=== PATIENT | female | born 1990 | race Caucasian/White ===

== ENCOUNTER 2022-10-10 16:46 | Observation (INO) | payer MEDICAID, OTHER ==
[2022-10-10] MEDS ORDERED: Sodium Chloride 0.9% 1000 ML 1,000 ML IV STA (17:48)
[2022-10-10] MEDS ORDERED: PROTONIX 40 MG IV IV ONE ×2 (17:48→18:19)
[2022-10-10] MEDS ORDERED: SUBLIMAZE 100 MCG/2 ML IV ONE (17:48)
[2022-10-10] MEDS ORDERED: Zofran 4 MG/2 ML VIAL IV ONE (17:48)
--- NOTE | 2022-10-10 17:52 | ERPHSYRPT ---
- History of Present Illness Historian: patient Exam Limitations: no limitations Patient Subjective Stated Complaint: C/O vomiting for 2 days with fever Triage Nursing Assessment: Patient ambulated back to ER. She is alert and oriented. Knees drawn up in bed. Face is flushed. No active vomiting during assessment. Voice is gruff. Weak, occ, dry cough present. No SOB. Timing/Duration: day(s) (two days) Activities at Onset: none Quality: burning Abdominal Pain Onset Location: epigastric Pain Radiation: no radiation Severity of Pain-Max: mild Severity of Pain-Current: mild Associated Symptoms: fever/chills, nausea, vomiting, No shortness of breath Previous symptoms: no prior history Body Map: 1 - pain Hx Tetanus, Diphtheria Vaccination/Date Given: Yes Hx Influenza Vaccination/Date Given: No Hx Pneumococcal Vaccination/Date Given: No Immunizations Up to Date: Yes <JODY,JACOB - Last Filed: 10/10/22 19:07> <ANTONIO SHORE - Last Filed: 10/10/22 20:42> - History of Present Illness Time Seen by Provider: 10/10/22 17:49 Physician History: C/O vomiting for 2 days with fever (JODY,JACOB) Allergies/Adverse Reactions: benzonatate [From Tessalon Perles] Allergy (Verified 10/10/22 17:30) cephalexin [From Keflex] Allergy (Verified 10/10/22 17:30) Home Medications: No Reportable Medications [No Reported Medications] 10/10/22 [History] Travel Risk - International Travel Have you traveled outside of the country in past 3 weeks: No - Coronavirus Screening Are you exhibiting any of the following symptoms?: No Symptoms: Fever, Vomiting/Diarrhea Close contact with a COVID-19 positive Pt in past 14-21 Days: No - Vaccine Status Have you recieved a Covid-19 vaccination: No <JODY,JACOB - Last Filed: 10/10/22 19:07> - Review of Systems Constitutional: Fever, Chills Eyes: No Symptoms Ears, Nose, & Throat: No Symptoms Respiratory: No Cough, No Dyspnea Cardiac: No Chest Pain, No Edema, No Syncope Abdominal/Gastrointestinal: Abdominal Pain (epigastric area), Nausea, Vomiting, No Diarrhea Genitourinary Symptoms: No Dysuria Musculoskeletal: No Back Pain, No Neck Pain Skin: No Rash Neurological: No Dizziness, No Focal Weakness, No Sensory Changes Psychological: No Symptoms Endocrine: No Symptoms All Other Systems: Reviewed and Negative <JODY,JACOB - Last Filed: 10/10/22 19:07> - Past Medical History Pertinent Past Medical History: Yes Respiratory History: Asthma Musculoskeletal History: Fractures Psycho-Social History: Anxiety, Depression - Past Surgical History Past Surgical History: Yes Female Surgical History: Section - Social History Smoking Status: Current every day smoker How long have you smoked: long time Exposure to second hand smoke: No Drug Use: none Patient Lives Alone: No - Female History Hx Last Menstrual Period: NOW Hx Now: No <JODY,JACOB - Last Filed: 10/10/22 19:07> - Physical Exam General Appearance: no apparent distress, alert Eye Exam: PERRL/EOMI, eyes nml inspection Ears, Nose, Throat Exam: normal ENT inspection, pharynx normal, moist mucous membranes Neck Exam: normal inspection, non-tender, supple, full range of motion Respiratory Exam: normal breath sounds, lungs clear, No respiratory distress Cardiovascular Exam: regular rate/rhythm, normal heart sounds Gastrointestinal/Abdomen Exam: soft, tenderness (epigastric), No mass Back Exam: normal inspection, normal range of motion, No CVA tenderness, No vertebral tenderness Extremity Exam: normal inspection, normal range of motion, pelvis stable Neurologic Exam: alert, oriented x 3, cooperative, normal mood/affect, nml cerebellar function, sensation nml, No motor deficits Skin Exam: normal color, warm, dry SpO2: 100 <JODY, - Last Filed: 10/10/22 19:07> - Nursing Vital Signs Nursing Vital Signs: Initial Vital Signs Temperature 99.2 F 10/10/22 17:31 Pulse Rate 64 10/10/22 17:31 Respiratory Rate 18 10/10/22 17:31 Blood Pressure 122/76 10/10/22 17:31 O2 Sat by Pulse Oximetry 100 10/10/22 17:31 Pain Scale Pain Intensity 9 - Course Nursing assessment & vital signs reviewed: Yes - CT Exams Abdomen/Pelvis CT Interpretation: Tele-radiologist Report <JODY,JACOB - Last Filed: 10/10/22 19:07> Ordered Tests: Active Orders 24 hr Category Date Time Status ABDOMEN AND PELVIS W/0 CONTRAS [CT] Stat Exams 10/10/22 17:52 Completed GALLBLADDER [US] Stat Exams 10/10/22 20:31 Ordered AMYLASE Stat Lab 10/10/22 18:09 Completed CBC W DIFF Stat Lab 10/10/22 18:09 Completed CMP Stat Lab 10/10/22 18:09 Completed LIPASE Stat Lab 10/10/22 18:09 Completed UA W/RFX UR CULTURE Stat Lab 10/10/22 20:08 Completed Medication Summary Discontinued Medications Generic Name Dose Route Start Last Admin Trade Name Freq PRN Reason Stop Dose Admin Fentanyl Citrate 50 mcg 10/10/22 17:48 10/10/22 18:27 Fentanyl Citrate 100 Mcg/2 Ml* Vial IV 10/10/22 17:49 50 mcg STAT ONE Administration Fentanyl Citrate Confirm 10/10/22 18:20 Fentanyl Citrate 100 Mcg/2 Ml* Vial Administered 10/10/22 18:21 Dose 100 mcg .ROUTE .STK-MED ONE Sodium Chloride 1,000 mls @ 999 mls/hr 10/10/22 17:48 10/10/22 20:14 Sodium Chloride 0.9% 1000 Ml IV 10/10/22 18:48 Infused .Q1H1M STA Infusion Sodium Chloride Confirm 10/10/22 18:20 Sodium Chloride 0.9% 1000 Ml Administered 10/10/22 18:21 Dose 1,000 mls @ ud .ROUTE .STK-MED ONE Levofloxacin/Dextrose 500 mg in 100 mls @ 100 mls/hr 10/10/22 18:40 10/10/22 19:54 Levofloxacin 500mg/100ml D5w IV 10/10/22 19:39 100 mls/hr STAT STA 100 mls/hr Administration Levofloxacin/Dextrose Confirm 10/10/22 19:53 Levofloxacin 500mg/100ml D5w Administered 10/10/22 19:54 Dose 500 mg in 100 mls @ ud IV .STK-MED ONE Ondansetron HCl 4 mg 10/10/22 17:48 10/10/22 18:24 Ondansetron Hcl 4 Mg/2 Ml Vial IV 10/10/22 17:49 4 mg STAT ONE Administration Ondansetron HCl Confirm 10/10/22 18:19 Ondansetron Hcl 4 Mg/2 Ml Vial Administered 10/10/22 18:20 Dose 4 mg .ROUTE .STK-MED ONE Pantoprazole Sodium 40 mg 10/10/22 17:48 10/10/22 18:28 Pantoprazole 40 Mg Vial IV 10/10/22 17:49 40 mg STAT ONE Administration Pantoprazole Sodium Confirm 10/10/22 18:19 Pantoprazole 40 Mg Vial Administered 10/10/22 18:20 Dose 40 mg IV .STK-MED ONE Lab/Rad Data: Laboratory Result Diagrams 10/10/22 18:09 10/10/22 18:09 Laboratory Results 10/10/22 10/10/22 10/10/22 Range/Units 20:08 18:09 18:09 WBC 15.5 H (4.0-10.5) x10^3/uL RBC 4.85 (4.1-5.4) x10^6/uL Hgb 15.5 (12.0-16.0) g/dL Hct 46.4 (35-47) % MCV 95.7 (78-100) fL MCH 32.0 (26-32) pg MCHC 33.4 (32-36) g/dL RDW 12.4 (11.5-14.0) % Plt Count 258 (150-450) x10^3/uL MPV 11.3 H (7.5-11.0) fL Gran % 79.3 H (36.0-66.0) % Immature Gran % (Auto) 0.4 (0.00-0.4) % Nucleat RBC Rel Count 0.0 (0.00-0.1) % Eos # (Auto) 0.01 (0-0.5) x10^3/uL Immature Gran # (Auto) 0.06 H (0.00-0.03) x10^3u/L Absolute Lymphs (auto) 2.01 (1.0-4.6) x10^3/uL Absolute Monos (auto) 1.12 (0.0-1.3) x10^3/uL Absolute Nucleated RBC 0.00 (0.00-0.01) x10^3u/L Lymphocytes % 12.9 L (24.0-44.0) % Monocytes % 7.2 (0.0-12.0) % Eosinophils % 0.1 (0.00-5.0) % Basophils % 0.1 (0.0-0.4) % Absolute Granulocytes 12.32 H (1.4-6.9) x10^3/uL Basophils # 0.02 (0-0.4) x10^3/uL Sodium 141 (137-145) mmol/L Potassium 4.1 (3.5-5.1) mmol/L Chloride 103 (98-107) mmol/L Carbon Dioxide 27 (22-30) mmol/L Anion Gap 15.3 H (5-15) MEQ/L BUN 19 H (7-17) mg/dL Creatinine 0.66 (0.52-1.04) mg/dL Estimated GFR > 60.0 ML/MIN Glucose 127 H (74-106) mg/dL Calcium 9.4 (8.4-10.2) mg/dL Total Bilirubin 0.60 (0.2-1.3) mg/dL AST 24 (14-36) U/L ALT 30 (0-35) U/L Alkaline Phosphatase 67 (38-126) U/L Serum Total Protein 8.5 H (6.3-8.2) g/dL Albumin 4.5 (3.5-5.0) g/dL Amylase 75 (30-110) U/L Lipase 65 (23-300) U/L Urine Color Yellow (Yellow) Urine Appearance Clear (Clear) Urine pH 6.0 (4.6-8.0) Ur Specific [place] >=1.030 A (1.005-1.030) Urine Protein Trace A (Negative) Urine Glucose (UA) Negative (Negative) mg/dL Urine Ketones Negative (Negative) Urine Blood NHT (Negative) Urine Nitrite Negative (Negative) Urine Bilirubin Negative (Negative) Urine Urobilinogen 0.2 (0.2) mg/dL Ur Leukocyte Esterase Negative (Negative) U Hyaline Cast (Auto) 3-5 A (0-2) /LPF Urine Microscopic RBC 0-2 (0-5) /HPF Urine Microscopic WBC 3-5 (0-5) /HPF Ur Epithelial Cells Rare (None Seen) /HPF Urine Bacteria None Seen (None Seen) /HPF Urine Culture Reflexed NO (NO) - Progress Progress: improved, pain not gone completely, re-examined Discussed with Dr.: Joe, Other (Dr. Beasley at 2024) Will see patient in: hospital (observation) Counseled pt/family regarding: lab results, diagnosis, need for follow-up, rad results <ANTONIO SHORE - Last Filed: 10/10/22 20:42> - Progress Progress Note: 10/10/22 20:36 32 years old female is checked out to me at shift change from with pending CT abdomen pelvis. She presented with upper abdominal pain/vomiting/fever chills for the last couple of days. She is given symptomatic treatment, during my evaluation she is feeling better but still have tenderness to epigastric and right upper quadrant with positive Palacios sign. She has a white count of 15. She already received a dose of Levaquin by . Liver enzymes are normal. No UTI. CT abdomen pelvis did show distended gallbladder with 2.2 cm stone without pericholecystic fluid or signs of inflammation suggesting acute cholecystitis. Clinically patient seems to be having acute cholecystitis. I have discussed with Dr. Merida general surgeon on- call, reviewed history, work-up and agreed with observation in the hospital. I have discussed with Dr. Dobbs hospitalist and patient is being admitted. We will obtain ultrasound right upper quadrant as well. I have discussed the results of work-up, discussion with general surgeon and hospitalist with patient and recommended admission and she agrees with it. We will keep her n.p.o. (ANTONIO SHORE) Medical Desision Making - Discussion of managment Care discussed with:: specialist (Dr. Dobbs at [address]ida general surgeon) Reviewed:: Test results, Need for additional workup Agreed on:: Treatment plan, place in obs Will see patient: in hospital - Diagnostic Testing Diagnostic test were ordered, analyzed, and reviewed by me: Yes Radiological Interpretation: Reviewed by me - Risk of complications The pt has a high risk of morbidity or mortality based on: Decision regarding hospitilization or escalation of hosp level of care <ANTONIO SHORE - Last Filed: 10/10/22 20:42> <JACOB VERA - Last Filed: 10/10/22 19:07> - Departure Departure Disposition: Observation Critical Care Time: No <ANTONIO SHORE - Last Filed: 10/10/22 20:42> - Departure Clinical Impression: Upper abdominal pain Condition: Stable
[2022-10-10 18:12] LABS: Absolute Neutrophil Ct (ANC) 12.32 x10^3/uL (1.4-6.9); BASOPHIL % 0.1 % (0.0-0.4); Basophil (Absolute #) 0.02 x10^3/uL (0-0.4); Eosinophil % 0.1 % (0.00-5.0); Eosinophil (Absolute #) 0.01 x10^3/uL (0-0.5); Hematocrit 46.4 % (35-47); Hemoglobin 15.5 g/dL (12.0-16.0); IMMATURE GRAN # 0.06 x10^3u/L (0.00-0.03); IMMATURE GRAN % 0.4 % (0.00-0.4); Lymphocyte (Absolute #) 2.01 x10^3/uL (1.0-4.6); Lymphocytes % 12.9 % (24.0-44.0); Mean Cell Volume 95.7 fL (78-100); Mean Corpuscular Hgb Concent. 33.4 g/dL (32-36); Mean Platelet Volume 11.3 fL (7.5-11.0); Monocyte (Absolute #) 1.12 x10^3/uL (0.0-1.3); Monocytes % 7.2 % (0.0-12.0); Neutrophil % 79.3 % (36.0-66.0); Platelet Count 258 x10^3/uL (150-450); Red Blood Count 4.85 x10^6/uL (4.1-5.4); Red Cell Distribution Width 12.4 % (11.5-14.0); White Blood Count 15.5 x10^3/uL (4.0-10.5)
[2022-10-10] MEDS ORDERED: Zofran 4 MG/2 ML VIAL ONE (18:19)
[2022-10-10] MEDS ORDERED: SUBLIMAZE 100 MCG/2 ML ONE (18:20)
[2022-10-10] MEDS ORDERED: Sodium Chloride 0.9% 1000 ML 1,000 ML ONE (18:20)
[2022-10-10 18:21] LABS: ALBUMIN 4.5 g/dL (3.5-5.0); ALKALINE PHOSPHATASE 67 U/L (38-126); AMYLASE 75 U/L (30-110); ANION GAP 15.3 MEQ/L (5-15); BLOOD UREA NITROGEN 19 mg/dL (7-17); CHLORIDE 103 mmol/L (98-107); Calcium 9.4 mg/dL (8.4-10.2); Carbon Dioxide 27 mmol/L (22-30); Creatinine 1 0.66 mg/dL (0.52-1.04); EST GLOMERULAR FILTRATION RATE > 60.0 ML/MIN; Glucose 127 mg/dL (74-106); LIPASE 65 U/L (23-300); Potassium 4.1 mmol/L (3.5-5.1); SGOT/AST 24 U/L (14-36); SGPT/ALT 30 U/L (0-35); SODIUM 141 mmol/L (137-145); Total Protein 8.5 g/dL (6.3-8.2)
[2022-10-10] MEDS ORDERED: Levofloxacin 500MG/100ML D5W 500 MG/100 ML BAG IV STA (18:40)
--- NOTE | 2022-10-10 19:32 | XRAY ---
CLINICAL HISTORY:epigastric abdominal pain COMPARISON:None. TECHNIQUE:CT scan of the abdomen and pelvis was performed without contrast. Coronal and sagittal reconstructive images were also obtained. FINDINGS: Abdomen: The liver is normal measuring 17.0 cm craniocaudally. No diffuse or focal parenchymal abnormality. The portal vein, intrahepatic biliary radicals and the bile ducts are normal. The spleen, pancreas, adrenal glands are unremarkable. The kidneys are normal in size and shape. A tiny calculus is seen in the middle calyx of the left kidney measuring 3.0 mm (too small to characterize HU density). No hydronephrosis. The gallbladder is distended with an intraluminal stone measuring 2.2 cm. There is no evidence of wall thickening/ pericholecystic collection. The ascending colon, the transverse colon, the descending colon, visualized small bowel loops are unremarkable. There is no evidence of significant enlargement of the mesenteric or retroperitoneal lymph nodes. Atherosclerotic aorta and some of its branches. Pelvis: The urinary bladder is unremarkable. The rectosigmoid colon is unremarkable. The uterus is unremarkable. The cervix is dilated and air-filled. The pelvic vasculature is unremarkable. No evidence of pelvic lymphadenopathy. The osseous structures in the pelvis, lower rib cage and lumbar spine show no abnormality. IMPRESSION: 1. Sizable gallbladder stone with no signs of cholecystitis. 2. Tiny non-obstructing left renal calculus. 3. Dilated and air-filled cervix. Clinical correlation suggested. Electronically Signed by: Gonzalez Catherine MD. (10/10/2022 18:32:05 [employer])
[2022-10-10] MEDS ORDERED: Levofloxacin 500MG/100ML D5W 500 MG/100 ML BAG IV ONE (19:53)
[2022-10-10 20:19] LABS: Appearance Clear (Clear); Bacteria None Seen /HPF (None Seen); Bilirubin Negative (Negative); Blood NHT (Negative); Epithelial Cells Rare /HPF (None Seen); Glucose, Urine Negative (Negative); Ketones Negative (Negative); Leukocyte Esterase Negative (Negative); Nitrite Negative (Negative); Protein,Urine Dip Trace (Negative); RBC 0-2 /HPF (0-5); Specific Gravity >=1.030 (1.005-1.030); Urobilinogen 0.2 mg/dL (0.2)
[2022-10-10 20:23] LABS: ADD URINE CULTURE? NO (NO)
[2022-10-10] MEDS ORDERED: Sodium Chloride 0.9% W/ 20 mEq KCl/LITER 1,000 ML IV SCH (23:08)
[2022-10-10] MEDS ORDERED: DUONEB 0.5-3 MG/3 ml Neb IH PRN (23:08)
[2022-10-10] MEDS ORDERED: TYLENOL 325 MG PO PRN (23:08)
[2022-10-10] MEDS: Sodium Chloride 0.9% 1000 ML 1,000 ML IV SCH (23:24)
[2022-10-10] MEDS: MORPHINE SULFATE 4 MG INJ IV PRN (23:25)
[2022-10-10] MEDS: Zofran 4 MG/2 ML VIAL IV PRN (23:35)
[2022-10-11] MEDS ORDERED: Reglan 10 MG/2 ML IV PRN (00:42)
--- NOTE | 2022-10-11 00:57 | PCM.HP ---
History of Present Illness - Chief Complaint Chief Complaint: Upper abdominal pain Date: 10/11/22 History of Present Illness: This is a 32-year-old female admitted for acute cholecystitis. She has no past medical history. She presented to the ED this evening for evaluation of fever, vomiting, RUQ pain for 2 days. On arrival temp was 99.2, heart rate 64, blood pressure 122/76, sat 100% on room air. Labs significant for WBC 15, AST 24, ALT 30, alk phos 67, lipase 65 UA positive for protein and hyaline casts. CT abdomen pelvis is obtained that showed the gallbladder was distended with an intraluminal stone measuring 2.2 cm with no wall thickening or pericholecystic fluid. In the ED she received fentanyl, 1 L crystalloid, Levaquin, Zofran, Protonix. General surgeon was consulted by ED with plans to keep her n.p.o. - Review of Systems Constitutional: Fever Eyes: No Symptoms Ears, Nose, & Throat: No Symptoms Respiratory: No Symptoms Cardiac: No Symptoms Abdominal/Gastrointestinal: Abdominal Pain, Nausea, Vomiting Genitourinary Symptoms: No Symptoms Musculoskeletal: No Symptoms Skin: No Symptoms Neurological: No Symptoms Psychological: No Symptoms Endocrine: No Symptoms Hematologic/Lymphatic: No Symptoms Immunological/Allergic: No Symptoms Medications & Allergies Home Medications: Home Medication List No Reportable Medications [No Reported Medications] 10/10/22 [History Confirmed 10/10/22] Allergies/Adverse Reactions: Allergies Allergy/AdvReac Type Severity Reaction Status Date / Time benzonatate Allergy Verified 10/10/22 17:30 [From Tessalon Perles] cephalexin [From Keflex] Allergy Verified 10/10/22 17:30 - Past Medical History Past Medical History: Yes Neurological History: No Pertinent History ENT History: No Pertinent History Cardiac History: No Pertinent History Respiratory History: Asthma Endocrine Medical History: No Pertinent History Musculoskelatal History: Fractures GI Medical History: No Pertinent History History: No Pertinent History Pyscho-Social History: Anxiety, Depression Reproductive Disorders: No Pertinent History - Female History Hx Last Menstrual Period: NOW Are you now?: No - Past Surgical History Past Surgical History: Yes Neuro Surgical History: No Pertinent History Cardiac History: No Pertinent History Respiratory Surgery: No Pertinent History GI Surgical History: No Pertinent History Genitourinary Surgical Hx: No Pertinent History Musculskeletal Surgical Hx: No Pertinent History Female Surgical History: Section - Social History Smoking Status: Current every day smoker How long have you smoked: long time Exposure to second hand smoke: No Alcohol: None Drug Use: none - Physical Exam Vital Signs: Vital Signs - 24 hr Temp Pulse Resp BP BP Pulse Ox 10/11/22 00:05 57 L 16 97 10/10/22 23:40 98.7 F 81 16 140/60 98 10/10/22 21:00 136/82 99 10/10/22 20:30 55 L 151/85 100 10/10/22 20:01 60 171/85 100 10/10/22 19:31 64 134/86 99 10/10/22 19:07 100 10/10/22 19:01 68 149/79 95 10/10/22 18:53 60 124/77 96 10/10/22 18:01 57 L 158/86 98 10/10/22 17:31 99.2 F 64 18 122/76 122/76 100 General Appearance: no apparent distress Neurologic Exam: alert, oriented x 3 Eye Exam: PERRL/EOMI Ears, Nose, Throat Exam: normal ENT inspection Neck Exam: normal inspection Respiratory Exam: normal breath sounds Cardiovascular Exam: regular rate/rhythm Gastrointestinal/Abdomen Exam: tenderness (RUQ) Extremity Exam: normal inspection Skin Exam: normal color Results - Labs Lab/Micro Results: Lab Results-Last 24 Hours 10/10/22 10/10/22 10/10/22 Range/Units 18:09 18:09 20:08 WBC 15.5 H (4.0-10.5) x10^3/uL RBC 4.85 (4.1-5.4) x10^6/uL Hgb 15.5 (12.0-16.0) g/dL Hct 46.4 (35-47) % MCV 95.7 (78-100) fL MCH 32.0 (26-32) pg MCHC 33.4 (32-36) g/dL RDW 12.4 (11.5-14.0) % Plt Count 258 (150-450) x10^3/uL MPV 11.3 H (7.5-11.0) fL Gran % 79.3 H (36.0-66.0) % Immature Gran % (Auto) 0.4 (0.00-0.4) % Nucleat RBC Rel Count 0.0 (0.00-0.1) % Eos # (Auto) 0.01 (0-0.5) x10^3/uL Immature Gran # (Auto) 0.06 H (0.00-0.03) x10^3u/L Absolute Lymphs (auto) 2.01 (1.0-4.6) x10^3/uL Absolute Monos (auto) 1.12 (0.0-1.3) x10^3/uL Absolute Nucleated RBC 0.00 (0.00-0.01) x10^3u/L Lymphocytes % 12.9 L (24.0-44.0) % Monocytes % 7.2 (0.0-12.0) % Eosinophils % 0.1 (0.00-5.0) % Basophils % 0.1 (0.0-0.4) % Absolute Granulocytes 12.32 H (1.4-6.9) x10^3/uL Basophils # 0.02 (0-0.4) x10^3/uL Sodium 141 (137-145) mmol/L Potassium 4.1 (3.5-5.1) mmol/L Chloride 103 (98-107) mmol/L Carbon Dioxide 27 (22-30) mmol/L Anion Gap 15.3 H (5-15) MEQ/L BUN 19 H (7-17) mg/dL Creatinine 0.66 (0.52-1.04) mg/dL Estimated GFR > 60.0 ML/MIN Glucose 127 H (74-106) mg/dL Calcium 9.4 (8.4-10.2) mg/dL Total Bilirubin 0.60 (0.2-1.3) mg/dL AST 24 (14-36) U/L ALT 30 (0-35) U/L Alkaline Phosphatase 67 (38-126) U/L Serum Total Protein 8.5 H (6.3-8.2) g/dL Albumin 4.5 (3.5-5.0) g/dL Amylase 75 (30-110) U/L Lipase 65 (23-300) U/L Urine Color Yellow (Yellow) Urine Appearance Clear (Clear) Urine pH 6.0 (4.6-8.0) Ur Specific [place] >=1.030 A (1.005-1.030) Urine Protein Trace A (Negative) Urine Glucose (UA) Negative (Negative) mg/dL Urine Ketones Negative (Negative) Urine Blood NHT (Negative) Urine Nitrite Negative (Negative) Urine Bilirubin Negative (Negative) Urine Urobilinogen 0.2 (0.2) mg/dL Ur Leukocyte Esterase Negative (Negative) U Hyaline Cast (Auto) 3-5 A (0-2) /LPF Urine Microscopic RBC 0-2 (0-5) /HPF Urine Microscopic WBC 3-5 (0-5) /HPF Ur Epithelial Cells Rare (None Seen) /HPF Urine Bacteria None Seen (None Seen) /HPF Urine Culture Reflexed NO (NO) - Radiology Impressions Radiology Exams & Impressions: Radiology Procedures Category Date Time Status ABDOMEN AND PELVIS W/0 CONTRAS [CT] Stat Exams 10/10/22 17:52 Completed GALLBLADDER [US] Stat Exams 10/10/22 23:08 Ordered Assessment/Plan (1) Upper abdominal pain Current Visit: Yes Status: Acute Assessment & Plan: ASSESSMENT #Acute Cholecystitis #Nausea/Vomiting PLAN -Follow abdominal exam -Keep n.p.o. -Antibiotic coverage ->Levaquin -IV fluids -Pain and nausea control -Follow LFTs Diet: N.p.o. Prophylaxis: Lovenox, Protonix Entire encounter performed via telemedicine Telemedicine Encounter - Telemedicine Encounter Telemedicine Encounter: The entirety of this encounter was performed via Telemedicine"
[2022-10-11 05:15] LABS: Absolute Neutrophil Ct (ANC) 9.23 x10^3/uL (1.4-6.9); BASOPHIL % 0.2 % (0.0-0.4); Basophil (Absolute #) 0.03 x10^3/uL (0-0.4); Eosinophil % 0.6 % (0.00-5.0); Eosinophil (Absolute #) 0.09 x10^3/uL (0-0.5); Hematocrit 45.6 % (35-47); Hemoglobin 14.9 g/dL (12.0-16.0); IMMATURE GRAN # 0.06 x10^3u/L (0.00-0.03); IMMATURE GRAN % 0.4 % (0.00-0.4); Lymphocyte (Absolute #) 3.78 x10^3/uL (1.0-4.6); Lymphocytes % 26.6 % (24.0-44.0); Mean Cell Volume 97.4 fL (78-100); Mean Corpuscular Hemoglobin 31.8 pg (26-32); Mean Corpuscular Hgb Concent. 32.7 g/dL (32-36); Mean Platelet Volume 11.5 fL (7.5-11.0); Neutrophil % 65.2 % (36.0-66.0); Platelet Count 224 x10^3/uL (150-450); Red Blood Count 4.68 x10^6/uL (4.1-5.4); Red Cell Distribution Width 12.4 % (11.5-14.0); White Blood Count 14.2 x10^3/uL (4.0-10.5)
[2022-10-11 05:36] LABS: ALKALINE PHOSPHATASE 60 U/L (38-126); ANION GAP 12.4 MEQ/L (5-15); BLOOD UREA NITROGEN 16 mg/dL (7-17); CHLORIDE 104 mmol/L (98-107); Calcium 8.8 mg/dL (8.4-10.2); Carbon Dioxide 26 mmol/L (22-30); Creatinine 1 0.77 mg/dL (0.52-1.04); EST GLOMERULAR FILTRATION RATE > 60.0 ML/MIN; Glucose 135 mg/dL (74-106); MAGNESIUM 2.4 mg/dL (1.6-2.3); Potassium 4.4 mmol/L (3.5-5.1); SGOT/AST 22 U/L (14-36); SGPT/ALT 26 U/L (0-35); SODIUM 139 mmol/L (137-145); Total Protein 7.5 g/dL (6.3-8.2)
[2022-10-11] MEDS: MORPHINE SULFATE 4 MG INJ IV PRN ×4 (05:36→19:58)
[2022-10-11] MEDS: Zofran 4 MG/2 ML VIAL IV PRN ×3 (05:37→18:33)
[2022-10-11] MEDS: PROTONIX 40 MG IV IV SCH (09:07)
[2022-10-11] MEDS: Sodium Chloride 0.9% 1000 ML 1,000 ML IV SCH (09:09)
[2022-10-11] MEDS ORDERED: Sensorcaine 0.25% 10 ML ONE (10:11)
[2022-10-11] MEDS ORDERED: Lactated Ringers 1,000 ML IV ONE (10:12)
--- NOTE | 2022-10-11 11:02 | XRAY ---
Indication: Pain. Nausea and vomiting. Two-dimensional gallbladder sonogram performed. Comparison: None Gallbladder partially contracted with borderline wall thickening up to 2.7 mm. Tiny pericholecystic fluid but no gallstones or abnormal biliary distention. Common bile duct measures 4.9 mm. Remaining visualized pancreas and right kidney are sonographically unremarkable. Impression: Pericholecystic fluid without gallstones. Rule out acalculous cholecystitis. Comment: Study was reviewed with Dr. Faustin.
[2022-10-11] MEDS ORDERED: Xylocaine-Mpf 2% 5 Ml Vial ONE (13:14)
[2022-10-11] MEDS ORDERED: DIPRIVAN 200 MG/20 ML IV ONE (13:14)
[2022-10-11] MEDS ORDERED: Versed 2 MG/2 ML Injection ONE (13:14)
--- NOTE | 2022-10-11 14:01 | CONS ---
CONSULT DATE: 10/11/2022 This patient was seen for Dr. Matt Merida who apparently was called over the weekend while he was software applications specialist. I do not see a note that he had seen the patient. HISTORY: The patient had some thickening of the gallbladder wall on CT scan and ultrasound. She had some epigastric pain for two or three days. She does have history of fever but again she did not have a distended gallbladder. She had a contracted gallbladder. Ultrasound today did not show any evidence of gallstone. She said she is actually feeling a little bit better. Liver function tests were unremarkable. Her white count was 14, hemoglobin 14.9. Lipase 65. She said her pain is in epigastrium and not the right upper quadrant. She said it is better. PAST MEDICAL HISTORY: She denies any chronic illnesses. She has a little bit of asthma, anxiety, depression and no other chronic illnesses. She denies Crohn's disease, heart disease or diabetes. PAST SURGICAL HISTORY: section. HOME MEDICATIONS: None. ALLERGIES: BENZONATATE. CEPHALEXIN. FAMILY HISTORY: Negative in regards to this specific problem. SOCIAL HISTORY: She is a smoker. No alcohol abuse. REVIEW OF SYSTEMS: Fourteen systems reviewed. Negative or noncontributory as above and per preadmission questionnaire. PHYSICAL EXAMINATION: GENERAL: No acute distress. She is NPO. HEENT: Sclera nonicteric. EOMI. Oral mucous membranes moist. NECK: No JVD. CHEST: Equal excursion, nonlabored breathing. CVS: Regular rhythm and pulse. ABDOMEN: Soft. Generalized epigastric pain. EXTREMITIES: She was ambulating in the halls going out for a smoke break. NEURO: Alert, moving extremities grossly symmetrically. PSYCH: Appropriate mood and affect. SKIN: Dry. IMPRESSION: Epigastric pain she said is improved. I reviewed her ultrasound with Dr. Reji Donald, Radiologist. She does not have any gallstones on ultrasound. She has a little bit of wall thickening, whether there is any cholecystic fluid of small amount. Again, this is not a contracted gallbladder, nondistended at this point. Options were discussed with the patient whether she has acute on chronic cholecystitis or whether she has gastritis, peptic ulcer disease or other etiology. Options considered were cholecystectomy, EGD to rule out ulcer disease or gastritis. I ordered a HIDA scan. She prefers to avoid any open surgical procedures if at all possible at this time. She is not wanting to undergo cholecystectomy at this juncture. She is agreeable with doing an upper scope. If that does not show much, can order HIDA scan. Again, I am seeing this patient with Dr. Merida. If upper endoscopy does not show much then schedule for HIDA, She does understand there is a minimal chance that she has a chronic inflammation of her gallbladder and would benefit from removal. However at this time she is not wanting to do this at this point. If no gallstones she could go ahead and plan an EGD first and if negative order HIDA scan. The patient was seen for Dr. Matt Merida who was software applications specialist for our group when she came in.
--- NOTE | 2022-10-11 14:20 | OP ---
SURGERY DATE/TIME: 10/11/2022 1318 PREOPERATIVE DIAGNOSES: 1) Epigastric pain. 2) History of gallbladder ultrasound with slight wall thickening but nondistended and no gallstones. POSTOPERATIVE DIAGNOSES: 1) Mild erosive gastritis. 2) Very short segment distal esophagitis. 3) ASA Class II. PROCEDURES: 1) EGD with cold biopsy of small bowel to evaluate for celiac sprue. 2) Cold biopsy of the antrum to evaluate for Helicobacter pylori. 3) Cold biopsy distal esophagus. SURGEON: Dr. Gamaleil Faustin. ANESTHESIA: MAC. ESTIMATED BLOOD LOSS: Minimal. INDICATIONS: As noted above. Risks and benefits explained in detail and not limited to and consent obtained. DESCRIPTION OF PROCEDURE AND FINDINGS: The patient is taken to the endoscopy room. MAC anesthesia introduced. After official time out and no disagreement with planned procedure, bite block positioned. Video gastroscope passed down the esophagus through the patent pylorus to the junction of the second and third portion of the duodenum. There were no signs of any ulcer. Given her symptom complaints, cold biopsy is taken to evaluate for celiac sprue to rule out other cause of her symptoms. Scope pulled back into the stomach. She did have some erythema, congestion, superficial erosions, some mild erosive gastritis. There were no signs of any ulcers. On retroflex there were no signs of any large hiatal hernia. Cold biopsy had been taken in the small bowel. Cold biopsy had been taken in the antrum for Helicobacter pylori. The scope pulled back to the gastroesophageal junction about 39 cm. There was a very short segment of linear erosion about 2 to 3 mm extension consistent with a short segment distal esophagitis, mild distal esophagitis. No signs of any masses. No signs of any other obvious mucosal abnormalities on withdrawal of the scope. The scope is withdrawn. The patient tolerated the procedure well. There is no family here to discuss the findings with. There were no immediate complications.
[2022-10-11] MEDS ORDERED: NICODERM CQ 14 MG TOP SCH (21:00)
--- NOTE | 2022-10-11 21:17 | TM.IN ---
Tele-Medicine Incident Note - Incident Note Tel-Medicine Incident Note: Note, patient seen earlier this morning by overnight physician. This morning, was ambulating, but still having some abdominal pain and nausea. Seen by Dr. Faustin this morning, and right upper quadrant ultrasound did not show the stone that was reported on the CT scan. As well, it showed only minimal gallbladder wall thickening, and no distention. Upon further description to Dr. Faustin, pain appear to be more midepigastric. Patient underwent upper endoscopy, that showed mild gastritis and erosive esophagitis, but no ulcers. Biopsies were taken for H. pylori and celiac sprue. Afterwards, patient was somewhat sedated, but later in the day was able to tolerate a p.o. diet. However, was too late in the evening to arrange for transport home. Will place patient on regular diet. Continue Protonix 40 mg IV daily, but can move to oral PPI at home. Tolerating diet now, so we will stop continuous IV fluids. DC Levaquin with no evidence of cholecystitis. Per Dr. Faustin, will plan for HIDA scan for more subtle signs of acute cholecystitis, which will be done as an outpatient on 10/14. Patient can go home tomorrow in the meantime. Telemedicine Encounter - Telemedicine Encounter Telemedicine Encounter: The entirety of this encounter was performed via Telemedicine"
[2022-10-11] MEDS ORDERED: LEVOFLOXACIN 750MG/150ML D5W 750 MG/150 ML BAG IV SCH (22:00)
[2022-10-12] MEDS: Zofran 4 MG/2 ML VIAL IV PRN ×2 (00:21→08:28)
[2022-10-12] MEDS: MORPHINE SULFATE 4 MG INJ IV PRN ×2 (00:21→08:28)
[2022-10-12 05:15] LABS: Hematocrit 40.3 % (35-47); Hemoglobin 13.3 g/dL (12.0-16.0); Mean Cell Volume 98.1 fL (78-100); Mean Corpuscular Hemoglobin 32.4 pg (26-32); Mean Platelet Volume 11.7 fL (7.5-11.0); Platelet Count 206 x10^3/uL (150-450); Red Blood Count 4.11 x10^6/uL (4.1-5.4); Red Cell Distribution Width 12.2 % (11.5-14.0)
[2022-10-12 05:40] LABS: ANION GAP 8.4 MEQ/L (5-15); BLOOD UREA NITROGEN 13 mg/dL (7-17); CHLORIDE 106 mmol/L (98-107); Calcium 8.3 mg/dL (8.4-10.2); Carbon Dioxide 27 mmol/L (22-30); Creatinine 1 0.74 mg/dL (0.52-1.04); EST GLOMERULAR FILTRATION RATE > 60.0 ML/MIN; Glucose 75 mg/dL (74-106); Potassium 3.3 mmol/L (3.5-5.1); SODIUM 138 mmol/L (137-145)
[2022-10-12 07:49] VITALS: BP 111/68; PULSE 50; RESP 17; TEMP 97.3; O2SAT 94
[2022-10-12] MEDS ORDERED: Klor Con PO ONE (08:10)
[2022-10-12] MEDS: PROTONIX 40 MG IV IV SCH (08:28)
[2022-10-12] MEDS ORDERED: NORCO 7.5/325 MG TAB PO PRN (08:48)
[2022-10-12] MEDS ORDERED: Protonix 40MG Tablet ONE (09:29)
--- NOTE | 2022-10-12 11:11 | PCM.DS ---
Discharge Summary Date of Admission: 10/10/22 22:58 Date of Discharge: 10/12/2022 Admitting Physician: NANCY ARTEAGA MD Primary Care Provider: NO FAMILY DOCTOR Allergies Allergies benzonatate [From Tessalon Perles] Allergy (Verified 10/10/22 17:30) cephalexin [From Keflex] Allergy (Verified 10/10/22 17:30) Hospital Summary - Hospital Course Hospital Course: 32-year-old woman with no past medical history who presented with 2 days of fever, vomiting, and right upper quadrant versus midepigastric abdominal pain. Initially had mild leukocytosis, and had suspicion for gallbladder distention with possible stone on CT scan. However, on obtaining right upper quadrant ultrasound, no stone was visible, no distention noted, and only borderline gallbladder wall thickening. Surgery Dr. Faustin was consulted, who felt that patient's pain was more midepigastric and possible ulcer. Underwent EGD that showed only erosive esophagitis and gastritis, but no ulcers. Biopsies were taken for celiac sprue and possible H. pylori, and patient was started on PPI B ID. Dr. Faustin arranged for HIDA scan to be done as an outpatient later this week. She was tolerating oral diet and ambulating, without vomiting, although still has some intermittent abdominal pain, at time of discharge. Greater than 30 minutes were spent arranging discharge. - Vitals & Intake/Output Vital Signs: Vital Signs Temperature 97.3 F 10/12/22 07:48 Pulse Rate 50 L 10/12/22 07:48 Respiratory Rate 17 10/12/22 07:48 Blood Pressure 111/68 10/12/22 07:48 O2 Sat by Pulse Oximetry 94 L 10/12/22 07:48 Intake & Output: Intake & Output 10/09/22 10/10/22 10/11/22 10/12/22 11:59 11:59 11:59 11:59 Intake Total 3259 600 Balance 3259 600 Weight 56.5 kg - Lab Result Diagrams: 10/12/22 04:28 10/12/22 04:28 Lab Results-Last 24 Hrs: Lab Results-Last 24 Hours 10/11/22 10/12/22 10/12/22 Range/Units 05:20 04:28 04:28 WBC 9.0 (4.0-10.5) x10^3/uL RBC 4.11 (4.1-5.4) x10^6/uL Hgb 13.3 (12.0-16.0) g/dL Hct 40.3 (35-47) % MCV 98.1 (78-100) fL MCH 32.4 H (26-32) pg MCHC 33.0 (32-36) g/dL RDW 12.2 (11.5-14.0) % Plt Count 206 (150-450) x10^3/uL MPV 11.7 H (7.5-11.0) fL Sodium 138 (137-145) mmol/L Potassium 3.3 L D (3.5-5.1) mmol/L Chloride 106 (98-107) mmol/L Carbon Dioxide 27 (22-30) mmol/L Anion Gap 8.4 (5-15) MEQ/L BUN 13 (7-17) mg/dL Creatinine 0.74 (0.52-1.04) mg/dL Estimated GFR > 60.0 ML/MIN Glucose 75 (74-106) mg/dL Calcium 8.3 L (8.4-10.2) mg/dL Beta HCG, Quant < 2.39 mIU/ml - Radiology Exams Ordered Rad Exams-Entire Visit: Radiology Procedures Category Date Time Status ABDOMEN AND PELVIS W/0 CONTRAS [CT] Stat Exams 10/10/22 17:52 Completed GALLBLADDER [US] Stat Exams 10/11/22 08:[address] abdomen/pelvis distended gallbladder with 2.2 cm intraluminal stone. No evidence of wall thickening or pericholecystic collection. Gallbladder ultrasound gallbladder partially contracted with borderline wall thickening up to 2.7 mm. Tiny pericholecystic fluid, but no gallstones or abnormal biliary distention. Common bile duct 4.9 mm. - Procedures and Test Procedures and Tests throughout Hospitalization: Therapy Orders & Screens 10/10/22 23:51 Smoking Cessation Education ONCE Comment: Diagnosis: Upper abdominal pain Smoking Status: Current every day smoker How long have you smoked: long time Have you smoked in the past 12 months: Yes Approximately how many cigarettes per day: 1 ppd Do you dip or chew tobacco: No 10/11/22 00:33 Respiratory Therapy Assessment DAILY Comment: Diagnosis: Upper abdominal pain Discharge Exam Comments: GENERAL: Sitting up in bed in no acute distress NEURO: Alert, oriented x3, normal affect CV: Regular rate and rhythm, no murmurs, no edema PULM: Clear to auscultation bilaterally, no work of breathing ABD: Soft, mildly tender to palpation over epigastrium, but no guarding or rebound. Nondistended. Final Diagnosis/Problem List - Final Discharge Diagnosis/Problem (1) Esophagitis with gastritis Current Visit: Yes Status: Acute Code(s): K29.70 - GASTRITIS, UNSPECIFIED, WITHOUT BLEEDING; K20.90 - ESOPHAGITIS, UNSPECIFIED WITHOUT BLEEDING Telemedicine Encounter - Telemedicine Encounter Telemedicine Encounter: The entirety of this encounter was performed via Telemedicine" - Discharge Discharge Date: 10/12/22 Disposition: Home, Self-Care Condition: Good Prescriptions: New Hydrocodone/Acetaminophen [Hydrocodone-Acetamin 5-325 mg] 1 tab PO Q4HPRN PRN #30 tablet MDD 6 PRN Reason: Pain PANTOPRAZOLE 40 mg Tablet [Protonix 40MG Tablet] 40 mg PO BID #60 tablet Outpatient Orders: HIDA-GALL BLADDER [NUCMED] Time Frame: 10/14/22, Facility: [facility], Location: RADIOLOGY Instructions: Severe Abdominal Pain, Adult (DC) Additional Instructions: Hida Scan is Scheduled for October @ 09:30 a.m. at [facility]. Nothing by mouth after midnight the night before and NO narcotics 8 hours prior to exam. Arrive 15 min early to register. Call [facility] at [phone] to set up an appointment with a primary care physician. Follow up with: TEMO DRAPER [ACTIVE STAFF] - 10/15/22 12:40 pm (at [facility]) ALEJA RAMIREZ DO [ACTIVE STAFF] - Forms: Outpatient Follow-up Labs/Proc
[2022-10-12] MEDS ORDERED: Protonix 40MG Tablet PO SCH ×2 (22:00)
== END 2022-10-12 11:40 | disposition home or self-care (01) ==
LOC: ED 16:46 → MED SURG 22:58
PROVIDERS: ADMIT Internal Medicine; ATTEND Internal Medicine
DX: K29.70 Gastritis, unspecified, without bleeding (principal); K20.90 Esophagitis, unspecified without bleeding; D72.829 Elevated white blood cell count, unspecified; R10.13 Epigastric pain; R93.89 Abnormal findings on diagnostic imaging of other specified body structures; Z72.0 Tobacco use; Z20.828 Contact with and (suspected) exposure to other viral communicable diseases
CPT/HCPCS: 36415; 74176; 76705; 80048; 80053; 81001; 82150; 83690; 83735; 84702; 85025; 85027; 96360; 96365; 96374; 96375; 99285; G0378; J1956; J2250; J2270; J2405; J2704; J3010; Q3014; A9270-GY